=== PATIENT | female | born 1970 | race Caucasian/White ===

== ENCOUNTER 2023-12-18 08:02 | Outpatient (AMB) | payer BC, SELFPAY ==
--- NOTE | 2023-12-18 08:04 | MHC.OFFWIV ---
Intake Vital Signs 12/18/23 08:10 Height 5 ft 5 in Weight 175 lb BMI 29.1 BP 130/74 Blood Pressure Location Rt brachial Position Sitting Pulse 78 Pulse Source Pulse Oximeter Pulse Oximetry (%) 98 Oxygen Delivery Method Room Air Intake Visit Reasons: EP Rt elbow up to shoulder pain Intake Note: pt is here for right elbow up to shoulder pain Patient Tobacco Use Status: Never used Tobacco Allergies No Known Allergies Allergy (Verified 12/18/23 08:32) Medication List - Last Reconciled 12/18/23 by AMADEO Carpenter citalopram 20 mg PO DAILY cyclobenzaprine 5 mg PO BEDTIME PRN estradiol (Mona) transdermal ibuprofen mg PO meloxicam 15 mg PO DAILY progesterone micronized 200 mg PO BEDTIME Do you need a note to return to daycare/school/sports/work: Yes HPI HPI Comments History of Present Illness Details Patient is a 53 year old female in today for a sick visit. For the past 2 weeks she reports discomfort in her right elbow after performing vigorous exercise. Patient states the pain is mostly in the medial aspect of her elbow. Denies tingling or numbness. She states she is given the area rest for the past 2 weeks and has noticed that the pain is now traveling to her shoulder. Patient does have point tenderness to the medial epicondyle and crepitus to the right shoulder. Denies any direct trauma to the area. Mild to moderate benefit with ibuprofen use. She reports having limited exercise activities for the past 2 weeks and is seen only mild improvement. Patient has full range of motion of extremities. [facility] Social History Patient Tobacco Use Status: Never used Tobacco Review of Systems Const All systems reviewed & are unremarkable except as noted in HPI and below Physical Exam Vital Signs: Last Vital Signs Pulse 78 12/18/23 08:10 BP 130/74 12/18/23 08:10 Pulse Ox 98 12/18/23 08:10 Oxygen Delivery Method Room Air 12/18/23 08:10 BMI result Body Mass Index 29.1 Vital signs reviewed stable. Const Other: Appearance: Alert.? Oriented X3.? No acute distress.? Head: Normocephalic, Respiratory: No respiratory distress.? Skin: Skin warm and dry.? Normal skin color.? Normal skin turgor.? Extremities: + point tenderness to right medial epicondyle. Full ROM. +crepitus to right shoulder on abductions. Neuro: Oriented X 3.? No motor deficit.? No sensory deficit. Assessment & Plan Assessment & Plan (1) Golshabana's elbow: Comment: Will obtain x-ray. Patient will be given meloxicam and cyclobenzaprine. Patient has been educated she can purchase a flexible elbow brace. Should utilize ice and rest. Patient has also been educated on stretches that she can perform at home to improve pain. Code(s): M77.00 - Medial epicondylitis, unspecified elbow Qualifiers: Laterality: right Qualified Code(s): M77.01 - Medial epicondylitis, right elbow Plan: Take your medications as prescribed. If you were prescribed antibiotics today, it is important that you take your medication to their entirety, do not skip any doses, do not finish them early. Follow-up with your primary care provider this week. Return to the emergency department with new or worsening symptoms. Such as fevers, chills, chest pain, shortness of breath, nausea, vomiting, dizziness, headache, vision changes, lethargy In case of emergency call 911 Plan Follow up with pcp. Orders: Orders XR elbow RT min 3V Today M25.521 - Pain in right elbow XR shoulder RT min 2V Today M25.511 - Pain in right shoulder Medications: New cyclobenzaprine 5 mg PO BEDTIME PRN 14 tabs 0RF muscle spasm meloxicam 15 mg PO DAILY 14 tabs 0RF Coding Level of Care Code Est Pt Level 3 (25867) Diagnoses Golfers elbow of right upper extremity M77.01 Laterality: right Time Spent (min) 28
[2023-12-18 08:10] VITALS: BP 130/74; PULSE 78; O2SAT 98; BMI 29.1
== END 2023-12-18 09:53 | disposition home or self-care (01) ==
PROVIDERS: PCP Nurse Practitioner Family; Visit Provider Nurse Practitioner Primary Care
DX: M77.01 Medial epicondylitis, right elbow (principal)
CPT/HCPCS: 99213

== ENCOUNTER 2023-12-18 08:28 | Outpatient (REF) | payer BC, SELFPAY ==
--- NOTE | ~2023-12-18 | XR_ITS ---
EXAMINATION: XR SHOULDER, RIGHT CLINICAL INFORMATION: Pain in the right shoulder COMPARISON: None available. TECHNIQUE: AP external rotation, Grashey, scapular Y, and axillary views of the right shoulder. FINDINGS: No fracture, dislocation or destructive process. There is mild spurring of the right AC joint. No erosive change. XR/XR shoulder RT min 2V IMPRESSION: Mild degenerative change. No fracture.
--- NOTE | ~2023-12-18 | XR_ITS ---
EXAMINATION: XR ELBOW, RIGHT CLINICAL INFORMATION: Right-sided elbow pain COMPARISON: None available. TECHNIQUE: AP, lateral, and oblique views of the right elbow. FINDINGS: No fracture, dislocation or destructive process or joint effusion. XR/XR elbow RT min 3V IMPRESSION: Unremarkable study.
== END 2023-12-18 08:29 | disposition home or self-care (01) ==
LOC: HO.HMGCX 08:28
PROVIDERS: PCP Nurse Practitioner Family; Visit Provider Nurse Practitioner Primary Care
DX: M25.521 Pain in right elbow (principal); M25.511 Pain in right shoulder
CPT/HCPCS: 73030; 73080

== ENCOUNTER 2024-03-10 10:49 | Outpatient (AMB) | payer BC, SELFPAY ==
--- NOTE | 2024-03-10 11:08 | MHC.PC.OV ---
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 Intake Note: New pateint visit Is last menstrual period known: No (spotting every month) Allergies No Known Allergies Allergy (Verified 03/10/24 11:38) Medication List - Last Reconciled 03/10/24 by Candice Chiang, SOUR BLEACHING PLEATER- estradiol (Mona) transdermal prasterone (dhea) 25 mg PO DAILY progesterone micronized 200 mg PO BEDTIME Tobacco use date assessed: 03/10/24 Dental Screening Dental Screen Date: 03/10/24 Did you have a dental visit in the last 12 months?: Yes Did you have a dental problem in the last 6 months where you did not have access to dental care?: No Was dental information given to patient?: Patient has dentist HPI HPI Comments History of Present Illness Details 53-year-old female with generalized anxiety disorder, mild DJD R shoulder, perimenopause, tinnitus, [place], obese Surgical hx umbilical hernia repair in childhood Family hx adopted 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 Colon reports UTD ? Mammo 11/2023 ? DEXA n/a not in menopause ? PAP UTD ? Tdap thinks UTD; had shingles vaccine a few years ago Specialists: CONTRACT ADMIN Dr Acosta @ [facility] [place] [facility] head MRI and hearing test; no cause. Here today est care, no old medical records Coming from [facility] Has complaints of an umbilical hernia. She reports during childhood she had a repair done. However the last few years she has noticed this area bulging out again. It is painless. However she wonders if there is anything that can be done. She also is very interested in finding out about her hormones. She is in perimenopause. She is under the care of photo finish photographer at [facility]. She had her IUD removed last March. Reports that she had spotting all along with the IUD, upon removal of the IUD she continues with the same spotting. She was interested in HRT to help with her symptoms, insight the use of online treatment. Is now taking a patch and oral HRT. Reports that she does feel better, and sleeping better. However she feels like she can not lose weight and she continuously has aches and pains in her joints. In regards to her weight she reports that she has always been a size 8, and over the last few years she has increased to a size 12. Reports that she eats clean, exercises however nothing seems to help. Does report that she was on Celexa previously for generalized anxiety disorder, however she stopped taking this about 3 months ago as she feels like she did not need this. Does admit to some increase in weight gain while on this medication. Was taking this for about 1 year. Admits to being hard of hearing, worse on the left, mild on the right, was followed by ENT previously. Does not need a hearing aid at this time. Has tinnitus that is chronic. Exam: awake alert NAD MMM RRR LS CTAB Abd soft, reducible umb hernia palpated Plan In regards to the umbilical hernia, we will refer to [facility] for consultation. In regards to the hormonal concern, perimenopause and inability to lose weight offered to check labs, declined at this time. Reports that she has had labs done fairly recently by her previous primary care and would like these records reviewed prior to checking any additional blood work. These records have been requested and are pending at this time. Advised to follow up with her photo finish photographer in regards to the hormones and perimenopausal symptoms and questions to include the medications being prescribed from the outlined physician. I do wonder if the way concerns related to the Celexa, which she is now off of. I would like to see her back in May/June to review her labs and weight concerns, sooner as needed. This note is constructed using voice recognition software. While every effort has been made to ensure accuracy in gyroscopic instrument mechanic, still errors may have been included Sometimes, these errors may affect the content or meaning of the given sentence . Total time spent caring for the patient today was 30 minutes. 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 1. Little interest or pleasure in doing things: not at all 2. Feeling down, depressed, or hopeless: not at all 3. Trouble falling or staying asleep, or sleeping too much: not at all 4. Feeling tired or having little energy: several days 5. Poor appetite or overeating: not at all 6. Feeling bad about yourself - or that you are a failure or have let yourself or your family down: not at all 7. Trouble concentrating on things, such as reading the newspaper or watching television: not at all 8. Moving or speaking so slowly that other people could have noticed. Or the opposite - being so fidgety or restless that you have been moving around a lot more than usual: not at all 9. Thoughts that you would be better off or of hurting yourself in some way: not at all Total score: 1 Depression Screening Interpretation: Negative Depression Screening Done: Yes 07252 - PHQ-9 Billing: Yes Source: Developed by Drs. Edwin Antonio, Deidre Aviles, Armin Bautista and colleagues, with an educational francis from [employer]. Thrive Questionnaire Date Thrive assessed: 03/10/24 I am a: Patient What is your living situation today?: I have a steady place to live Within the past 12 months, did the food you bought not last and you didn't have the money to get more?: Never true Within the past 12 months, did you worry whether your food would run out before you got money to buy more?: Never true Do you have trouble paying for medicines?: No Do you have trouble getting transportation to medical appointments?: No Do you have trouble paying your heating and electricity bill?: No Do you have trouble taking care of your child, family member or friend?: No Do you have trouble with day-to-day activities such as bathing, preparing meals, shopping, managing finances, etc.?: No Are you currently unemployed and looking for a job?: No Are you interested in more education?: No Please select the resources that you would like help with: None Currently or been in a relationship where the following occur: No concerns reported THRIVE Score: 0 AUDIT C Alcohol Use Questionnaire (AUDIT-C) 1. How often do you have a drink containing alcohol?: 2-3 times a week 2. How many drinks containing alcohol do you have on a typical day when you are drinking?: 5 or 6 3. How often do you have six or more drinks on one occasion?: Less than monthly Total Score: 6 Score Reviewed/Action Taken: Yes LOLA-7 AMB Questionnaire LOLA-7 Date LOLA - 7 assessed: 03/10/24 Feeling nervous, anxious, or on edge: 0 = Not at all Not being able to stop or control worryin = Not at all Worrying too much about different things: 0 = Not at all Trouble relaxin = Not at all Being so restless that it is hard to sit still: 0 = Not at all Becoming easily annoyed or irritable: 0 = Not at all Feeling afraid as if something awful might happen: 0 = Not at all Total LOLA-7 score (0-4 normal; 5-9 mild; 10-14 moderate; 15-21 severe): 0 Source: Developed by Drs. Edwin Antonio, Deidre Aviles, Armin Bautista and colleagues, with an educational francis from [employer]. LOLA-7 Assessment Billing LOLA-7 Assessment Tool: LOLA-7 Assessment 79935 Physical exam (Primary Care) Vital Signs: Last Vital Signs Temp 98.1 F 03/10/24 11:19 Pulse 63 03/10/24 11:19 Resp 14 03/10/24 11:19 BP 116/68 03/10/24 11:19 Pulse Ox 96 03/10/24 11:19 Oxygen Delivery Method Room Air 03/10/24 11:19 BMI result Body Mass Index 31.4 BMI Assessment/Plan discussion: High BMI High, discussed plan: lifestyle Tobacco/Smoking Status: Tobacco use Status Tobacco use date assessed 03/10/24 03/10/24 11:18 Patient Tobacco Use Status Former Tobacco user 03/10/24 11:18 e-Cigarette/Vaping Use Never Used 03/10/24 11:18 PHQ-9: PHQ-9 Score PHQ-9: Total score 1 03/10/24 11:38 Depression Screening Interpretation: Negative Thrive Assessment: Date of Thrive Assessment Date Thrive assessed 03/10/24 03/10/24 11:18 Currently or been in a relationship where the following occur: No concerns reported Assessment and Plan Assessment & Plan (1) Umbilical hernia: Code(s): K42.9 - Umbilical hernia without obstruction or gangrene Qualifiers: Obstruction and gangrene presence: without obstruction or gangrene Qualified Code(s): K42.9 - Umbilical hernia without obstruction or gangrene (2) LOLA (generalized anxiety disorder): Code(s): F41.1 - Generalized anxiety disorder (3) Perimenopausal: Code(s): N95.1 - Menopausal and female climacteric states (4) [place] (hard of hearing): Code(s): H91.90 - Unspecified hearing loss, unspecified ear (5) Tinnitus: Code(s): H93.19 - Tinnitus, unspecified ear Qualifiers: Laterality: bilateral Qualified Code(s): H93.13 - Tinnitus, bilateral (6) DJD (degenerative joint disease): Code(s): M19.90 - Unspecified osteoarthritis, unspecified site Qualifiers: Osteoarthritis location: shoulder Osteoarthritis type: primary Laterality: right Qualified Code(s): M19.011 - Primary osteoarthritis, right shoulder (7) Obese: Comment: bmi >31 Code(s): E66.9 - Obesity, unspecified Qualifiers: Obesity type: unspecified obesity type Obesity classification: adult class 1 (BMI 30 - 34.9) Serious obesity comorbidity presence: without serious comorbidity Body mass index: BMI 31.0-31.9 Qualified Code(s): E66.9 - Obesity, unspecified; Z68.31 - Body mass index [BMI] 31.0-31.9, adult Orders: Referrals General Surgery Referral K42.9 - Umbilical hernia without obstruction or gangrene Coding Level of Care Code New Pt Level 3 (70098) Complex EM visit Add On G2211 Diagnoses Umbilical hernia without obstruction and without gangrene K42.9 Obstruction and gangrene presence: without obstruction or gangrene LOLA (generalized anxiety disorder) F41.1 Perimenopausal N95.1 [place] (hard of hearing) H91.90 Tinnitus of both ears H93.13 Laterality: bilateral Primary osteoarthritis of right shoulder M19.011 Osteoarthritis location: shoulder Osteoarthritis type: primary Laterality: right Class 1 obesity without serious comorbidity with body mass index (BMI) of 31.0 to 31.9 in adult, unspecified obesity type E66.9; Z68.31 Obesity type: unspecified obesity type Obesity classification: adult class 1 (BMI 30 - 34.9) Serious obesity comorbidity presence: without serious comorbidity Body mass index: BMI 31.0-31.9 Additional Codes LOLA-7 Assessment Billing - LOLA-7 Assessment Tool: LOLA-7 Assessment 46236 ([id number])
[2024-03-10 11:19] VITALS: BP 116/68; PULSE 63; RESP 14; TEMP 36.7; O2SAT 96; BMI 31.4
== END 2024-03-10 12:06 | disposition home or self-care (01) ==
PROVIDERS: PCP Nurse Practitioner Family; Visit Provider Nurse Practitioner Family
DX: K42.9 Umbilical hernia without obstruction or gangrene (principal); F41.1 Generalized anxiety disorder; N95.1 Menopausal and female climacteric states; H91.90 Unspecified hearing loss, unspecified ear; H93.13 Tinnitus, bilateral; M19.011 Primary osteoarthritis, right shoulder; E66.9 Obesity, unspecified; Z68.31 Body mass index [BMI] 31.0-31.9, adult
CPT/HCPCS: 99203; 99213

== ENCOUNTER 2024-04-01 08:20 | Outpatient (AMB) | payer BC, SELFPAY ==
[2024-04-01 08:28] VITALS: BP 118/69; PULSE 66; BMI 30.9
--- NOTE | 2024-04-01 08:28 | A.OFFVIS_ITS ---
Vital Signs 04/01/24 08:28 Height 5 ft 5 in Weight 186 lb BMI 30.9 BP 118/69 Blood Pressure Location Rt brachial Position Sitting Pulse 66 Intake Visit Reasons: Umbilical hernia Intake Note: Patient referred by pcp Candice Chiang PA-C for umbilical hernia. Present for 1yr. Hx of umbilical hernia as a baby that repaired at age 8. Patient c/o: bulging out. denies pain. Hand Touch Up Painter Required: No Accompanied by: Self / Same As Patient Allergies No Known Allergies Allergy (Verified 04/01/24 08:36) HPI Comments Details: Patient presents with a symptomatic umbilical hernia. Slight tenderness repair. In her youth, she had an umbilical hernia repaired. Approximately year and half ago she was doing heavy lifting where she does workouts and has had symptoms since. These consist of umbilical pain and protrusion. She has no other significant GI issues or complaints. She is tolerating diet. Having regular bowel habits. 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 Abdomen benign. Bilateral groin exam negative. Patient has roughly 2 cm reducible umbilical hernia. Assessment & Plan Assessment & Plan (1) Umbilical hernia: Code(s): K42.9 - Umbilical hernia without obstruction or gangrene Category: Surgical Qualifiers: Obstruction and gangrene presence: without obstruction or gangrene Qualified Code(s): K42.9 - Umbilical hernia without obstruction or gangrene Plan Risks, benefits, alternatives of open umbilical hernia repair with mesh were reviewed with the patient and included but not limited to bleeding, infection, recurrence, numbness, pain, scarring, bowel injury and the patient wishes to proceed. Arrangements were made for a day which is convenient for her. All questions answered. Coding Level of Care Code New Pt Level 5 (98174) Diagnoses Umbilical hernia without obstruction and without gangrene K42.9 Obstruction and gangrene presence: without obstruction or gangrene
== END 2024-04-01 08:50 | disposition home or self-care (01) ==
PROVIDERS: PCP Nurse Practitioner Family; Referring Provider Nurse Practitioner Family; Visit Provider Surgery
DX: K42.9 Umbilical hernia without obstruction or gangrene (principal)
CPT/HCPCS: 99204

== ENCOUNTER → 2024-04-01 08:20 | Outpatient (BNVA) | payer BC, SELFPAY | PROVIDERS: PCP Nurse Practitioner Family; Referring Provider Nurse Practitioner Family; Visit Provider Surgery ==

== ENCOUNTER 2024-05-08 10:59 | Day surgery (SDC) | payer BC, SELFPAY ==
[2024-05-06 07:31] VITALS: BMI 30.9
--- NOTE | 2024-05-07 09:30 | P.HPSUR_ITS ---
Pre-Procedural Eval Section A - 24 Hr Update-Section A only Date of Service: 05/07/24 The patient is an INPATIENT: No Changes since office visit: No Cold of Flu in the past 2 weeks, No New Medical Problems, No Changes in Medication and No Patient answered all questions Section B - Complete if H&P > 30 days Chief Complaint: Umbilical hernia without obstruction or gangrene Allergies: Allergies Allergy/AdvReac Type Severity Reaction Status Date / Time No Known Allergies Allergy Verified 04/01/24 08:36 Review of Systems Sugical H&P ROS: Negative: Constitution, Cardiovascular, Respiratory, Neurological, Psychiatric, Hem-Onc, Allergic/Immunologic, Gastrointestinal, Genitourinary, Musculoskeletal, Integumentary, Endocrine and Ey es/Ears/Nose/Throat Exam Surgical H&P Exam: Normal: HEENT, Normal: Heart, Normal: Lungs, Normal: Extremities, Normal: Abdomen, Normal: Skin and Normal: Neurological Plan I have reviewed the history and physical and performed a pertinent physical examination on my patient. No changes have occurred unless specified. Time Spent With Patient Time: Total time managing care of this patient today ____ minutes.
[2024-05-08 12:51] VITALS: BMI 31.1
[2024-05-08 12:59] VITALS: BP 136/85; PULSE 72; RESP 16; TEMP 37.2; O2SAT 97
[2024-05-08] MEDS: Lactated Ringers 1,000 ML 100 ML IVCONT (13:11)
--- NOTE | 2024-05-08 13:20 | HO.ANESPROP2 ---
Documented by User: Madison Curtis NP 05/07/24 12:04 HPI - Anesthesia Eval Consult details Narrative: 53yo F for OPEN Hernia Umbilical with mesh PMFSH Active Problems Active Problems: All Active Problems Obese (Acute) DJD (degenerative joint disease) (Acute) Tinnitus (Acute) [place] (hard of hearing) (Acute) Perimenopausal (Acute) LOLA (generalized anxiety disorder) (Acute) Umbilical hernia (Acute) Past Medical History Medical History Right elbow pain Right shoulder pain Golfer's elbow Arthritis Family History Family History Maternal Aunt Breast cancer Surgical History Surgical History Hx of umbilical hernia repair Social History Social History Housing: House Patient Tobacco Use Status: Former Tobacco user Years Smoked: College years e-Cigarette/Vaping Use: Never Used Use of substances other than those prescribed or required for medical reasons: No Are you DNR?: No Advance Directives: No Advance Directives Information Provided: Yes Recently lost weight without trying: No Nutrition Risks: No Nutritional Risk service: No Current occupational status: employed 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 Current occupational exposures/hazards: No Cognitive needs: No Hearing needs: No Vision needs: Yes (glasse/ contact lense) Meds Allergies Allergy/AdvReac Type Severity Reaction Status Date / Time No Known Allergies Allergy Verified 04/01/24 08:36 Home Medications ?Medication ?Instructions ?Recorded ?Confirmed ?Last Taken ?Type estradiol 0.075 mg/24 hr transdermal 12/18/23 04/01/24 Unknown History semiweekly transdermal patch (Mona) progesterone micronized 200 mg 200 mg PO BEDTIME 12/18/23 04/01/24 Unknown History capsule prasterone (dhea) 25 mg capsule 25 mg PO DAILY 03/10/24 04/01/24 Unknown History Exam Height,Weight and Vital Signs: Height 5 ft 5 in Weight 84.368 kg Assessment and Plan Assessment Anesthesia Assessment: Chart Reviewed Documented by User: Amber Steinberg DO 05/08/24 13:22 [facility] Past Medical History Medical History Right elbow pain Right shoulder pain Golfer's elbow Arthritis Family History Family History Maternal Aunt Breast cancer Family history of problems with anesthesia: No Surgical History Surgical History Hx of umbilical hernia repair History of Problems with Anesthesia: No Social History Social History Housing: House Patient Tobacco Use Status: Former Tobacco user Years Smoked: College years e-Cigarette/Vaping Use: Never Used Use of substances other than those prescribed or required for medical reasons: No Are you DNR?: No Advance Directives: No Advance Directives Information Provided: Yes Recently lost weight without trying: No Nutrition Risks: No Nutritional Risk service: No Current occupational status: employed 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 Current occupational exposures/hazards: No Cognitive needs: No Hearing needs: No Vision needs: Yes (glasse/ contact lense) Meds Allergies Allergy/AdvReac Type Severity Reaction Status Date / Time No Known Allergies Allergy Verified 04/01/24 08:36 Home Medications ?Medication ?Instructions ?Recorded ?Confirmed ?Last Taken ?Type estradiol 0.075 mg/24 hr transdermal 12/18/23 04/01/24 Unknown History semiweekly transdermal patch (Mona) progesterone micronized 200 mg 200 mg PO BEDTIME 12/18/23 04/01/24 Unknown History capsule prasterone (dhea) 25 mg capsule 25 mg PO DAILY 03/10/24 04/01/24 Unknown History Exam Exam Date and Time: 05/08/24 1320 Height,Weight and Vital Signs: Height 5 ft 5 in Weight 84.368 kg Vital Signs Temperature 98.9 F 05/08/24 12:59 Pulse Rate 72 05/08/24 12:59 Respiratory Rate 16 05/08/24 12:59 Blood Pressure 136/85 05/08/24 12:59 Pulse Oximetry 97 05/08/24 12:59 Oxygen Delivery Method Room Air 05/08/24 12:59 Temperature 98.9 F 05/08/24 12:59 Pulse Rate 72 05/08/24 12:59 Respiratory Rate 16 05/08/24 12:59 Blood Pressure 136/85 05/08/24 12:59 Pulse Oximetry 97 05/08/24 12:59 Oxygen Delivery Method Room Air 05/08/24 12:59 Airway Mallampati Class: I TM Dist: >3cm Neck ROM: Full Loose/Missing/Broken Teeth: No (patient denies any loose or broken teeth) Heart: S1S2 Lungs: CTAB Assessment and Plan Assessment Anesthesia Assessment: Anesthesia Plan Discussed and Chart Reviewed Final Anesthetic Review Family History of Problems with Anesthesia: No History of Problems with Anesthesia: No NPO: Yes ASA Class: II Final Preanesthetic Review: No Changes in Pt Med Stat, Meds/Allgs Chart Reviewed, Consent Obtained/Reviewed and Anes Risks/Benef Reviewed Patient Risk: Low Procedure Risk: Low Anesthetic Plan Anesthetic Plan: MAC: and Agree w/ Assess. and Plan Disposition: Standard PACU
--- NOTE | 2024-05-08 15:07 | W.PM.OPN ---
Operative Note Operative Note Date of Service: 05/08/24 Narrative: Preoperative diagnosis: [] Incarcerated recurrent umbilical hernia Postop diagnosis: [] The same Procedure [] open umbilical herniorrhaphy with Bard mesh Surgeon: [] Joao Allergist/Immunologist Physician: [] Taylor Type of Anesthesia: [] MAC Indication for surgery: [] Roughly 3 cm incarcerated recurrent umbilical hernia with omental contents. Patient had open umbilical herniorrhaphy closed primarily in her youth. Findings: [] Patient brought to the operating room, placed on operative table supine position, after an adequate level of MAC anesthesia was induced, the patient's abdomen is prepped and draped in usual sterile fashion. Wound was infiltrated 0.5% Marcaine/1% lidocaine and a curvilinear supraumbilical incision was made and carried down through skin, subcutaneous tissue, where hernia sac was identified and circumferentially dissected down to the fascia. It was also in the posterior aspect of the umbilicus. Sac was opened were incarcerated omental contents were reduced. Sac was amputated using Bovie. Fascia margins were circumferentially cleared and a Bard mesh was placed with the this defect. Superficial layer of the mesh was circumferentially sutured to the surrounding fascia using 0 Ethibond suture. At completion of procedure, mesh was in good position with no tension or defects. Wound was irrigated, and secured hemostasis. Was closed in the following manner; posterior aspect of the umbilicus was tacked to the wound floor using interrupted 3-0 Vicryl sutures. Skin was closed using interrupted inverted dermal 3-0 Vicryl sutures followed by Steri-Strips and sterile dressings. Sponge, needle, and instrument counts reported correct. Patient tolerated the procedure well and emerged from anesthesia stable condition. EBL minimal
[2024-05-08 15:12] VITALS: BP 95/55; PULSE 70; RESP 10; TEMP 36.1; O2SAT 97
[2024-05-08 15:27] VITALS: BP 106/72; PULSE 68; RESP 16; TEMP 36.6; O2SAT 97
== END 2024-05-08 15:40 | disposition home or self-care (01) ==
PROVIDERS: PCP Nurse Practitioner Family; Visit Provider Surgery
PROC: (CPT 49592; principal; 2024-05-08 15:00)
DX: K42.0 Umbilical hernia with obstruction, without gangrene (principal)
CPT/HCPCS: 49592; C1781; J0690; J2250; J2704; J2795; J3010

== ENCOUNTER → 2024-05-08 10:59 | Outpatient (BNV) | payer BC, SELFPAY | PROVIDERS: PCP Nurse Practitioner Family; Visit Provider Surgery | DX: K42.9 Umbilical hernia without obstruction or gangrene (principal) | CPT/HCPCS: 49594 ==

== ENCOUNTER 2024-05-19 10:11 | Outpatient (AMB) | payer BC, SELFPAY ==
--- NOTE | 2024-05-19 10:12 | A.OFFVIS_ITS ---
Intake Visit Reasons: S/P umbilical hernia w/mesh Intake Note: Patient here s/p umbilical hernia w/mesh on 05-08-2024. Patient c/o: large bump near umbilicus that was noticed 3 days later after removing bandage. Thinks hernia still there. 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 She has minimal incisional discomfort otherwise doing well. She has been tolerating a diet. Having regular bowel habits. She increasing her activity level. Patient also pointed out that she and now has noticed a supraumbilical ventral hernia several cm above the umbilicus. This was not appreciated on prior exam. 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 Several cm above the umbilicus as a 2nd reducible ventral hernia. Defect measures roughly 2 cm Assessment & Plan Assessment & Plan (1) Status post umbilical hernia repair, follow-up exam: Code(s): Z09 - Encounter for follow-up examination after completed treatment for conditions other than malignant neoplasm Category: Surgical (2) Ventral hernia: Code(s): K43.9 - Ventral hernia without obstruction or gangrene Category: Surgical Plan She would like to have this supraumbilical ventral hernia repaired. Risks, benefits, alternatives to this were reviewed with the patient included but not l imited to bleeding, infection, recurrence, numbness, pain, scarring, bowel injury and the patient wishes to proceed. All questions answered. Arrangements were made for this. Coding Level of Care Code Est Pt Level 5 (97945) Global (81522) Diagnoses Status post umbilical hernia repair, follow-up exam Z09 Ventral hernia K43.9
== END 2024-05-19 10:31 | disposition home or self-care (01) ==
PROVIDERS: PCP Nurse Practitioner Family; Visit Provider Surgery
DX: Z09 Encounter for follow-up examination after completed treatment for conditions other than malignant neoplasm (principal); K43.9 Ventral hernia without obstruction or gangrene
CPT/HCPCS: 99024

== ENCOUNTER → 2024-05-19 10:11 | Outpatient (BNVA) | payer BC, SELFPAY | PROVIDERS: PCP Nurse Practitioner Family; Visit Provider Surgery ==

== ENCOUNTER 2024-06-10 07:33 | Outpatient (REF) | payer BC, SELFPAY ==
[2024-06-10 12:15] LABS: Estimated Average Glucose 108 mg/dL; Hemoglobin A1c % 5.4 % (<6.0)
[2024-06-10 12:45] LABS: Alanine Aminotransferase 21 U/L (0-31); Alkaline Phosphatase 53 U/L (39-117); Anion Gap 12 (12-20); Aspartate Amino Transferase 22 U/L (5-31); Bilirubin Total 0.8 mg/dL (0.0-1.0); Blood Urea Nitrogen 15 mg/dL (9-16); Calcium 9.2 mg/dL (8.4-10.2); Carbon Dioxide 27 mmol/L (22-29); Chloride 106 mmol/L (96-108); Cholesterol 206 mg/dL (<200); Estimated Glomerular Filt Rate 56; Glucose Random 101 mg/dL (60-115); HDL Cholesterol 59 mg/dL (>40); LDL Cholesterol Calculated 130 mg/dL (<100); Potassium 3.9 mmol/L (3.3-5.1); Sodium 141 mmol/L (135-145); Total Protein 6.8 g/dL (6.5-8.0); Triglycerides 86 mg/dL (<150)
[2024-06-10 12:46] LABS: Creatinine Urine 199.09 mg/dL; Microalbum/Creatinine Ratio Ur 3.5 ug/mg cr (<30)
[2024-06-10 13:10] LABS: Folate 9.4 ng/mL (> or = 4.0); Vitamin B12 455 pg/mL (200-900)
[2024-06-10 13:11] LABS: TSH reflex Free T4 2.44 uIU/mL (0.32-4.0)
== END 2024-06-10 07:34 | disposition home or self-care (01) ==
LOC: HO.WFDLDS 07:33
PROVIDERS: Visit Provider Nurse Practitioner Family
DX: Z00.00 Encounter for general adult medical examination without abnormal findings (principal); Z13.1 Encounter for screening for diabetes mellitus
CPT/HCPCS: 36415; 80053; 80061; 82043; 82570; 82607; 82746; 83036; 84443

== ENCOUNTER 2024-06-12 08:25 | Outpatient (AMB) | payer BC, SELFPAY ==
--- NOTE | 2024-06-12 08:28 | A.OFFPC_ITS ---
Vital Signs 06/12/24 08:31 Height 5 ft 5 in Weight 186 lb 2 oz BMI 31.0 BP 122/70 Blood Pressure Location Rt brachial Position Sitting Respiration 14 Pulse 69 Pulse Source Pulse Oximeter Pulse Oximetry (%) 99 Oxygen Delivery Method Room Air Intake Visit Reasons: f/u labs 30 min Intake Note: follow up on labs Allergies No Known Allergies Allergy (Verified 06/12/24 08:59) Medication List - Last Reconciled 06/12/24 by Candice Chiang, PICKER-BC estradiol (Mona) transdermal hydrocodone-acetaminophen 5-325 mg 1 tab PO Q4-6H PRN prasterone (dhea) 25 mg PO DAILY progesterone micronized 200 mg PO BEDTIME Tobacco use date assessed: 03/10/24 Dental Screening Dental Screen Date: 03/10/24 HPI HPI Comments History of Present Illness Details 53-year-old female with generalized anxi ety disorder, mild DJD R shoulder, perimenopause, tinnitus, [place], obese, HLD, chronic low back pain Surgical hx umbilical hernia repair in childhood, varicose vein repair, s/p umbilical hernia w/mesh on 05-08-2024. 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 Colon 2018 need report ? Mammo 11/2023 ? DEXA n/a not in menopause ? PAP UTD, Dr Acosta, need report ? Tdap thinks UTD; had shingles vaccine 2019 Specialists: SWAGE TENDER Dr Acosta @ [facility] ENT Dr Penny head MRI and hearing test; no cause. Gen Surgeon @ [facility] [place] Here today for routine follow up of chronic conditions. s/p hernia surgery, unfortunatley ended up with a double hernia and will need re peat surgery next week (supraumbilical ventral hernia) Cont to be very frustrated w/ her weight. Wt is 1 lb less than last visit. Would like to be 150 lbs. Lowest wt was 135lbs in adulthood. Has to be away from the gym d/t surgery At 0200 having hot flashes; otherwise perimenopause sx are fine w/ use of HRT patch Interested in wt loss meds, such as a GLP1. Does not like medications. Got period in [place] 04/2024. Cont to suffer from chronic tinnitus and [place]. Hearing aides eventually. Reviewed with her labs 06/10/24 normal except elevated TC, LDL wonders about any other labs for thyroid Previous medical records reviewed. Exam: awake alert NAD MMM RRR LS CTAB Abd soft, reducible umb hernia palpated Mood and affect WNL Plan 15 minutes spent Discussing different fo ledy of medications to help with weight loss. Discouraged the use of GLP-1s due to the need to use lifelong, weight gain after discontinuation, cost and cancer risk. Educated about the use of Wellbutrin which can be used in patients without a seizure history. This medication works by blocking out the reward center related to mindless eating. It also has a mild stimulating effect. The side effect profile includes mild anxiety as well as a slight dizzy sensation. Another medication used is metformin, this is a diabetic medication. This medication has GI side effects. But can be very beneficial in aiding with weight loss in patients without diabetes. Topiramate was also discussed. This is a seizure medication with side effect profile that includes need to monitor LFTs as well as blood counts. One of the side effects is weight loss. Another medication, Phentermine is a stimulant/controlled substance. This is an anorexient that is used short-term medication used. =. Finally the use of a medication called Contrave, which is Wellbutrin + naltrexone can be used. The brand name is usually not cover therefore would have to prescribe the 2 medications individually. This medication works just as the Wellbutrin; naltrexone aides in further blocking of the reward center to aide in wt loss. After discussion of the above, the patient wishes to proceed with Wellbutrin. Start Wellbutrin XL 150mg QAM. Titrate to effect to help goal wt. Can add thyroid antibodies onto next routine set of labs. which should be in 6 mo to recheck lipids. FU in 8 weeks, wt loss/wellbutrin start, titrate to effect. This note is constructed using voice recognition software. While every effort has been made to ensure accuracy in transcription typist, still errors may have been included Sometimes, these errors may affect the content or meaning of the given sentence . Total time spent caring for the patient today was 45 minutes. This includes time spent before the visit reviewing the chart, time spent during the visit, and time spent after the visit on documentation COUNT INCLUDES THE [facility] Medical History (Updated 06/12/24 @ 15:41 by KATELYNN Yates) Right elbow pain Right shoulder pain Golfer's elbow Arthritis Surgical History (Updated 06/12/24 @ 10:08 by KATELYNN Yates) Umbilical hernia (05/08/24) Hx of umbilical hernia repair Family History Maternal Aunt Breast cancer Social History Housing: House Patient Tobacco Use Status: Former Tobacco user Years Smoked: College years e-Cigarette/Vaping Use: Never Used service: No Current occupational status: employed 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 1. Little interest or pleasure in doing things: not at all 2. Feeling down, depressed, or hopeless: not at all 3. Trouble falling or staying asleep, or sleeping too much: several days 4. Feeling tired or having little energy: not at all 5. Poor appetite or overeating: several days 6. Feeling bad about yourself - or that you are a failure or have let yourself or your family down: not at all 7. Trouble concentrating on things, such as reading the newspaper or watching television: not at all 8. Moving or speaking so slowly that other people could have noticed. Or the opposite - being so fidgety or restless that you have been moving around a lot more than usual: not at all 9. Thoughts that you would be better off or of hurting yourself in some way: not at all Total score: 2 74168 - PHQ-9 Billing: Yes Source: Developed by Drs. Edwin Antonio, Deidre Aviles, Armin Bautista and colleagues, with an educational francis from [employer]. Thrive Questionnaire Date Thrive assessed: 06/12/24 I am a: Patient What is your living situation today?: I have a steady place to live Within the past 12 months, did the food you bought not last and you didn't have the money to get more?: Never true Within the past 12 months, did you worry whether your food would run out before you got money to buy more?: Never true Do you have trouble paying for medicines?: No Do you have trouble getting transportation to medical appointments?: No Do you have trouble paying your heating and electricity bill?: No Do you have trouble taking care of your child, family member or friend?: No Do you have trouble with day-to-day activities such as bathing, preparing meals, shopping, managing finances, etc.?: No Are you currently unemployed and looking for a job?: No Are you interested in more education?: No Please select the resources that you would like help with: None Currently or been in a relationship where the following occur: No concerns reported THRIVE Score: 0 AUDIT C Alcohol Use Questionnaire (AUDIT-C) 1. How often do you have a drink containing alcohol?: 2-3 times a week 2. How many drinks containing alcohol do you have on a typical day when you are drinking?: 1 or 2 3. How often do you have six or more drinks on one occasion?: Never Total Score: 3 LOLA-7 AMB Questionnaire LOLA-7 Date LOLA - 7 assessed: 06/12/24 Feeling nervous, anxious, or on edge: 0 = Not at all Not being able to stop or control worryin = Not at all Worrying too much about different things: 0 = Not at all Trouble relaxin = Not at all Being so restless that it is hard to sit still: 0 = Not at all Becoming easily annoyed or irritable: 0 = Not at all Feeling afraid as if something awful might happen: 0 = Not at all Total LOLA-7 score (0-4 normal; 5-9 mild; 10-14 moderate; 15-21 severe): 0 Source: Developed by Drs. Edwin Antonio, Deidre Aviles, Armin Bautista and colleagues, with an educational francis from [employer]. LOLA-7 Assessment Billing LOLA-7 Assessment Tool: LOLA-7 Assessment 08146 Physical exam (Primary Care) Vital Signs: Last Vital Signs Pulse 69 06/12/24 08:31 Resp 14 06/12/24 08:31 BP 122/70 06/12/24 08:31 Pulse Ox 99 06/12/24 08:31 Oxygen Delivery Method Room Air 06/12/24 08:31 BMI result Body Mass Index 31.0 Tobacco/Smoking Status: Tobacco use Status Tobacco use date assessed 03/10/24 06/12/24 08:30 Patient Tobacco Use Status Former Tobacco user 06/12/24 08:30 e-Cigarette/Vaping Use Never Used 06/12/24 08:30 PHQ-9: PHQ-9 Score PHQ-9: Total score 2 06/12/24 08:30 Thrive Assessment: Date of Thrive Assessment Date Thrive assessed 06/12/24 06/12/24 08:30 Currently or been in a relationship where the following occur: No concerns reported Office Procedures Office Procedure Misc Details: G0449 15 MIN OBESITY EDUCATION Office Procedure Billing Code: AMB Procedure Billing Code (G0449 15 MIN OBESITY EDUCATION) Coding Level of Care Code Est Pt Level 5 (64934) Complex EM visit Add On G2211 Diagnoses Ventral hernia without obstruction or gangrene K43.9 Obstruction and gangrene presence: without obstruction or gangrene Tinnitus of both ears H93.13 Laterality: bilateral [place] (hard of hearing) H91.90 Perimenopausal N95.1 Moderate mixed hyperlipidemia not requiring statin therapy E78.2 Hyperlipidemia type: moderate mixed hyperlipidemia not requiring statin therapy BMI 31.0-31.9,adult Z68.31 Class 1 obesity with serious comorbidity and body mass index (BMI) of 31.0 to 31.9 in adult, unspecified obesity type E66.811; Z68.31 Obesity type: unspecified obesity type Serious obesity comorbidity presence: with serious comorbidity CPT Codes Office Procedure - Office Procedure Billing Code: AMB Procedure Billing Code ([id number]) Additional Codes LOLA-7 Assessment Billing - LOLA-7 Assessment Tool: LOLA-7 Assessment 81715 ([id number]) Assessment & Plan Assessment & Plan (1) Ventral hernia: Code(s): K43.9 - Ventral hernia without obstruction or gangrene Category: Surgical Qualifiers: Obstruction and gangrene presence: without obstruction or gangrene Qualified Code(s): K43.9 - Ventral hernia without obstruction or gangrene Plan: . (2) Tinnitus: Code(s): H93.19 - Tinnitus, unspecified ear Category: Medical Qualifiers: Laterality: bilateral Qualified Code(s): H93.13 - Tinnitus, bilateral Plan: . (3) [place] (hard of hearing): Code(s): H91.90 - Unspecified hearing loss, unspecified ear Category: Medical Plan: . (4) Perimenopausal: Code(s): N95.1 - Menopausal and female climacteric states Category: Medical Plan: . (5) Hyperlipidemia: Code(s): E78.5 - Hyperlipidemia, unspecified Category: Medical Qualifiers: Hyperlipidemia type: moderate mixed hyperlipidemia not requiring statin therapy Qualified Code(s): E78.2 - Mixed hyperlipidemia Plan: TO REDUCE LOW-DENSITY LIPOPROTEIN (LDL) CHOLESTEROL, YOU CAN TRY MAKING LIFESTYLE CHANGES TO YOUR DIET, EXERCISE, AND OTHER HABITS: EAT A HEART-HEALTHY DIET LIMIT SATURATED AND TRANS FATS, AND EAT MORE FOODS WITH HEALTHY FATS, LIKE NUTS, SEEDS, AND UNSATURATED OILS. YOU CAN ALSO TRY EATING MORE SOLUBLE FIBER, WHICH CAN HELP REDUCE THE AMOUNT OF CHOLESTEROL YOUR BODY ABSORBS. FOODS HIGH IN SOLUBLE FIBER INCLUDE WHOLE GRAINS, FRUITS, AND LEGUMES. EXERCISE REGULARLY AIM FOR AT LEAST 150 MINUTES OF EXERCISE PER WEEK, SUCH WALKING, SWIMMING, OR CYCLING. MAINTAIN A HEALTHY WEIGHT LOSING WEIGHT CAN HELP LOWER LDL CHOLESTEROL, ESPECIALLY IF YOU ARE OVERWEIGHT OR OBESE. MANAGE STRESS CHRONIC STRESS CAN RAISE LDL CHOLESTEROL, SO TRY TO FIND HEALTHY WAYS TO MANAGE IT. QUIT SMOKING SMOKING CAN RAISE CHOLESTEROL AND INCREASE THE RISK OF SERIOUS HEALTH PROBLEMS. GET ENOUGH SLEEP AIM FOR 7 TO 9 HOURS OF SLEEP PER NIGHT. YOU SHOULD ALSO LIMIT FOODS WITH CHOLESTEROL, WHICH ARE FOUND IN ANIMAL PRODUCTS LIKE LIVER, EGG YOLKS, AND WHOLE MILK DAIRY PRODUCTS. (6) BMI 31.0-31.9,adult: Code(s): Z68.31 - Body mass index [BMI] 31.0-31.9, adult Category: Medical Plan: . (7) Class 1 obesity with body mass index (BMI) of 31.0 to 31.9 in adult: Comment: HLD Code(s): E66.811 - Obesity, class 1; Z68.31 - Body mass index [BMI] 31.0-31.9, adult Category: Medical Qualifiers: Obesity type: unspecified obesity type Serious obesity comorbidity presence: with serious comorbidity Qualified Code(s): E66.811 - Obesity, class 1; Z68.31 - Body mass index [BMI] 31.0-31.9, adult Plan: . Plan . Orders: Orders Lipid Panel 10/11/24 E66.811 - Obesity, class 1, E78.2 - Mixed hyperlipidemia, Z68.31 - Body mass index [BMI] 31.0-31.9, adult Thyroid Peroxidase Antibodies 10/11/24 E66.811 - Obesity, class 1, E78.2 - Mixed hyperlipidemia, Z68.31 - Body mass index [BMI] 31.0-31.9, adult Thyroid Stimulating Hormone 10/11/24 E66.811 - Obesity, class 1, E78.2 - Mixed hyperlipidemia, Z68.31 - Body mass index [BMI] 31.0-31.9, adult Medications: New bupropion HCl XL (Wellbutrin XL) 150 mg PO QAM 90 tabs 0RF
[2024-06-12 08:31] VITALS: BP 122/70; PULSE 69; RESP 14; O2SAT 99; BMI 31.0
== END 2024-06-12 09:23 | disposition home or self-care (01) ==
LOC: HO.HMCFM 08:26
PROVIDERS: PCP Nurse Practitioner Family; Visit Provider Nurse Practitioner Family
DX: K43.9 Ventral hernia without obstruction or gangrene (principal); H93.13 Tinnitus, bilateral; Z68.31 Body mass index [BMI] 31.0-31.9, adult; E66.811 Obesity, class 1; H91.93 Unspecified hearing loss, bilateral; N95.1 Menopausal and female climacteric states; E78.2 Mixed hyperlipidemia

== ENCOUNTER → 2024-06-12 08:25 | Outpatient (BNVA) | payer BC, SELFPAY | PROVIDERS: PCP Nurse Practitioner Family; Visit Provider Nurse Practitioner Family | DX: K43.9 Ventral hernia without obstruction or gangrene (principal); H93.13 Tinnitus, bilateral; H91.90 Unspecified hearing loss, unspecified ear; N95.1 Menopausal and female climacteric states; E78.2 Mixed hyperlipidemia; E66.811 Obesity, class 1; Z68.31 Body mass index [BMI] 31.0-31.9, adult | CPT/HCPCS: 96127 ==

== ENCOUNTER 2024-06-20 06:08 | Day surgery (SDC) | payer BC, SELFPAY ==
[2024-06-18 10:23] VITALS: BMI 30.9
--- NOTE | 2024-06-18 14:55 | HO.ANESPROP2 ---
Documented by User: Madison Curtis NP 06/18/24 14:55 HPI - Anesthesia Eval Consult details Narrative: 54yo F for Open Hernia Supraumbilical Ventral with mesh s/p umbilical hernia repair 04/2024 with [facility] Active Problems Active Problems: All Active Problems Class 1 obesity with body mass index (BMI) of 31.0 to 31.9 in adult (Acute) BMI 31.0-31.9,adult (Acute) Hyperlipidemia (Acute) Ventral hernia (Acute) Status post umbilical hernia repair, follow-up exam (Acute) Obese (Acute) DJD (degenerative joint disease) (Acute) Tinnitus (Acute) [place] (hard of hearing) (Acute) Perimenopausal (Acute) LOLA (generalized anxiety disorder) (Acute) Umbilical hernia (Acute 05/08/24) Past Medical History Medical History Chronic low back pain Tinnitus DJD (degenerative joint disease) Anxiety [place] (hard of hearing) Hyperlipidemia Arthritis Golfer's elbow Family History Family History Maternal Aunt Breast cancer Family history of problems with anesthesia: No Surgical History Surgical History Hx of umbilical hernia repair Hx of umbilical hernia repair History of Problems with Anesthesia: No Social History Social History Housing: House Are you a primary physician assistant primary care to a significant other at home: No Do you presently have visiting nurse or other home services: No Patient Tobacco Use Status: Former Tobacco user Years Smoked: College years e-Cigarette/Vaping Use: Never Used Have you been hit, kicked, punched, or otherwise hurt by someone within the past year? 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 Current occupational exposures/hazards: No Cognitive needs: No Hearing needs: No Vision needs: Yes (glasse/ contact lense) Meds Allergies Allergy/AdvReac Type Severity Reaction Status Date / Time No Known Allergies Allergy Verified 06/20/24 06:38 Home Medications ?Medication ?Instructions ?Recorded ?Confirmed ?Last Taken ?Type estradiol 0.075 mg/24 hr 1 patch transdermal 2XW 12/18/23 06/18/24 Unknown History semiweekly transdermal patch (Mona) progesterone micronized 200 mg 200 mg PO BEDTIME 12/18/23 06/18/24 Unknown History capsule prasterone (dhea) 25 mg capsule 25 mg PO DAILY 03/10/24 06/18/24 Unknown History Exam Height,Weight and Vital Signs: Height 5 ft 5 in Weight 84.368 kg Pertinent Lab Results Pertinent Lab Results: Laboratory Tests 06/10/24 07:24 Sodium 141 Potassium 3.9 Chloride 106 Carbon Dioxide 27 BUN 15 Creatinine 1.02 Assessment and Plan Assessment Anesthesia Assessment: Chart Reviewed Final Anesthetic Review Family History of Problems with Anesthesia: No History of Problems with Anesthesia: No Documented by User: Odette Nunez MD 06/20/24 07:59 PMFSH Past Medical History Medical History Chronic low back pain Tinnitus DJD (degenerative joint disease) Anxiety [place] (hard of hearing) Hyperlipidemia Arthritis Golfer's elbow Family History Family History Maternal Aunt Breast cancer Surgical History Surgical History Hx of umbilical hernia repair Hx of umbilical hernia repair Social History Social History Housing: House Are you a primary physician assistant primary care to a significant other at home: No Do you presently have visiting nurse or other home services: No Patient Tobacco Use Status: Former Tobacco user Years Smoked: College years e-Cigarette/Vaping Use: Never Used Have you been hit, kicked, punched, or otherwise hurt by someone within the past year? 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 Current occupational exposures/hazards: No Cognitive needs: No Hearing needs: No Vision needs: Yes (glasse/ contact lense) Meds Allergies Allergy/AdvReac Type Severity Reaction Status Date / Time No Known Allergies Allergy Verified 06/20/24 06:38 Home Medications ?Medication ?Instructions ?Recorded ?Confirmed ?Last Taken ?Type estradiol 0.075 mg/24 hr 1 patch transdermal 2XW 12/18/23 06/18/24 Unknown History semiweekly transdermal patch (Mona) progesterone micronized 200 mg 200 mg PO BEDTIME 12/18/23 06/18/24 Unknown History capsule prasterone (dhea) 25 mg capsule 25 mg PO DAILY 03/10/24 06/18/24 Unknown History Exam Airway Mallampati Class: II TM Dist: >3cm Neck ROM: Full Heart: rrr Lungs: cta Assessment and Plan Assessment Anesthesia Assessment: Anesthesia Plan Discussed Final Anesthetic Review NPO: Yes ASA Class: II Final Preanesthetic Review: No Changes in Pt Med Stat, Meds/Allgs Chart Reviewed, Consent Obtained/Reviewed and Anes Risks/Benef Reviewed Patient Risk: Intermediate Procedure Risk: Low Anesthetic Plan Anesthetic Plan: GA Disposition: Standard PACU
--- NOTE | 2024-06-19 12:36 | P.HPSUR_ITS ---
Pre-Procedural Eval Section A - 24 Hr Update-Section A only Date of Service: 06/20/24 The patient is an INPATIENT: No Changes since office visit: No Cold of Flu in the past 2 weeks, No New Medical Problems, No Changes in Medication and No Patient answered all questions Section B - Complete if H&P > 30 days Chief Complaint: Ventral hernia without obstruction or gangrene Allergies: Allergies Allergy/AdvReac Type Severity Reaction Status Date / Time No Known Allergies Allergy Verified 06/12/24 08:59 Review of Systems Sugical H&P ROS: Negative: Constitution, Cardiovascular, Respiratory, Neurological, Psychiatric, Hem-Onc, Allergic/Immunologic, Gastrointestinal, Genitourinary, Musculoskeletal, Integumentary, Endocrine and Eyes /Ears/Nose/Throat Exam Surgical H&P Exam: Normal: HEENT, Normal: Heart, Normal: Lungs, Normal: Extremities, Normal: Abdomen, Normal: Skin and Normal: Neurological Plan I have reviewed the history and physical and performed a pertinent physical examination on my patient. No changes have occurred unless specified. Time Spent With Patient Time: Total time managing care of this patient today ____ minutes.
[2024-06-20] VITALS (7 sets, daily range): BP systolic 111–136; BP diastolic 64–83; PULSE 45–77; RESP 16–18; TEMP 36.1–36.7; O2SAT 95–100; BMI 30.8
[2024-06-20] MEDS: Lactated Ringers 1,000 ML 100 ML IVCONT (06:29)
--- NOTE | 2024-06-20 08:02 | P.OP_ITS ---
Operative Note Operative Note Date of Service: 06/20/24 Narrative: Preoperative diagnosis: [] Incarcerated supraumbilical ventral hernia Postop diagnosis: [] The same Procedure [] open supraumbilical ventral herniorrhaphy with Bard mesh Surgeon: [] Joao Developer Prover Mechanical: [] Taylor Type of Anesthesia: [] General Indication for surgery: [] Roughly 3 cm incarcerated supraumbilical ventral hernia with omental contents Findings: [] Patient brought to the operating room, placed on operative table in supine position, after an adequate level of general anesthesia was induced, the patient's abdomen is prepped draped in usual sterile fashion using a transverse incision in the supraumbilical area over the hernia in question, this carried down through skin, subcutaneous tissue, where hernia sac was identified and circumferentially dissected down through the fascia. Sac was opened were incarcerated omental contents were amputated using Bovie. Fascia margins were circumferentially cleared. Inappropriate sized Bard mesh was placed in this defect, and the superficial layer of the mesh was circumferentially sutured to the surrounding fascia using interrupted 0 Ethibond suture. At completion of the procedure, mesh was in good position with no gaps or tension. Wound was irrigated, secured hemostasis, and closed in the following manner; subcutaneous tissue was reapproximated using interrupted 3-0 Vicryl sutures. Skin was closed using interrupted inverted dermal 3-0 Vicryl sutures followed by Steri-Strips and sterile dressings. Wound was infiltrated at the beginning and at the end with 0.5% Marcaine/1% lidocaine. Sponge, needle, and instrument counts were reported correct. Patient tolerated the procedure well and emerged from anesthesia stable condition. EBL minimal
== END 2024-06-20 09:20 | disposition home or self-care (01) ==
PROVIDERS: PCP Nurse Practitioner Family; Visit Provider Surgery
PROC: (CPT 49592; principal; 2024-06-20 07:30)
DX: K43.6 Other and unspecified ventral hernia with obstruction, without gangrene (principal); Z98.890 Other specified postprocedural states; Z87.891 Personal history of nicotine dependence
CPT/HCPCS: 49592; 88304; C1781; J0131; J0690; J1100; J1885; J2003; J2405; J2704; J2795; J3010

== ENCOUNTER → 2024-06-20 06:08 | Outpatient (BNV) | payer BC, SELFPAY | PROVIDERS: PCP Nurse Practitioner Family; Visit Provider Surgery | DX: K43.9 Ventral hernia without obstruction or gangrene (principal) | CPT/HCPCS: 49594 ==

== ENCOUNTER 2024-07-01 08:45 | Outpatient (AMB) | payer BC, SELFPAY ==
--- NOTE | 2024-07-01 08:53 | MHC.OFFVIS ---
Intake Visit Reasons: s/p Repair supraumbilical ventral hernia w/mesh Intake Note: Patient here s/p repair supraumbilical ventral hernia w/mesh. Reports incisions healing well. Patient c/o: experienced severe pain after surgery but much improved now. No longer taking rx pain meds. SX: 06-20-2024 School Health Aide Required: No Accompanied by: Self / Same As Patient Allergies No Known Allergies Allergy (Verified 07/01/24 08:54) HPI Comments Details: Patient presents for follow-up status post supraumbilical ventral hernia repair. He is doing well. He is tolerating a diet. Having regular bowel habits. She is increasing her activity level. She has minimal incisional discomfort. [facility] Medical History Chronic low back pain Tinnitus DJD (degenerative joint disease) Anxiety [place] (hard of hearing) Hyperlipidemia Arthritis Golfer's elbow Surgical History (Updated 07/01/24 @ 09:36 by Reinaldo Shepherd MD) Ventral hernia (06/20/24) Hx of umbilical hernia repair Hx of umbilical hernia repair Family History Maternal Aunt Breast cancer Social History Housing: House Are you a primary personal care home administrator to a significant other at home: No Do you presently have visiting nurse or other home services: No Patient Tobacco Use Status: Former Tobacco user Years Smoked: College years e-Cigarette/Vaping Use: Never Used service: No Current occupational status: employed 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 Supraumbilical and umbilical wounds well healed. Assessment & Plan Assessment & Plan (1) Status post repair of ventral hernia: Code(s): Z98.890 - Other specified postprocedural states; Z87.19 - Personal history of other diseases of the digestive system Category: Medical Plan Patient was been given local instructions including avoiding strenuous activities next few weeks time and will otherwise follow-up p.r.n.. All questions answered. Coding Level of Care Code Global (17858) Diagnoses Status post repair of ventral hernia Z98.890; Z87.19
== END 2024-07-01 08:59 | disposition home or self-care (01) ==
PROVIDERS: PCP Nurse Practitioner Family; Visit Provider Surgery
DX: K43.9 Ventral hernia without obstruction or gangrene (principal); Z09 Encounter for follow-up examination after completed treatment for conditions other than malignant neoplasm
CPT/HCPCS: 99212

== ENCOUNTER → 2024-07-01 08:45 | Outpatient (BNVA) | payer BC, SELFPAY | PROVIDERS: PCP Nurse Practitioner Family; Visit Provider Surgery ==

== ENCOUNTER 2024-08-12 08:22 | Outpatient (AMB) | payer BC, SELFPAY ==
--- NOTE | 2024-08-12 08:25 | A.OFFPC_ITS ---
Vital Signs 08/12/24 08:29 Height 5 ft 5 in Weight 185 lb BMI 30.8 BP 104/84 Blood Pressure Location Rt brachial Position Sitting Respiration 16 Pulse 84 Pulse Source Pulse Oximeter Temp 98.2 F Temp Source Oral Pulse Oximetry (%) 98 Oxygen Delivery Method Room Air Intake Visit Reasons: fu START wellbutrin/wt loss Intake Note: patient here for follow up on wellbutrin/wt loss Program Director/Traffic Director Required: No Is last menstrual period known: No Post menopausal: No Patient : No Allergies No Known Allergies Allergy (Verified 08/12/24 08:52) Medication List - Last Reconciled 08/12/24 by Candice Chiang, COAT EXAMINER- bupropion HCl XL (Wellbutrin XL) 150 mg PO QAM estradiol (Mona) 1 patch transdermal 2XW progesterone micronized 200 mg PO BEDTIME Tobacco use date assessed: 08/12/24 Dental Screening Dental Screen Date: 08/12/24 Did you have a dental visit in the last 12 months?: Yes Did you have a dental problem in the last 6 months where you did not have access to dental care?: No Was dental information given to patient?: Patient has dentist HPI HPI Comments History of Present Illness Details 54-year-old female with generalized anxi ety disorder, mild DJD R shoulder, perimenopause, tinnitus, HUGHES, obese, HLD, chronic low back pain Surgical hx umbilical hernia repair in childhood, varicose vein repair, s/p umbilical hernia w/mesh on 05-08-2024. 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 Colon 2019 need report ? Mammo 11/2023 ? DEXA n/a not in menopause ? PAP UTD, Dr Acosta, need report ? Tdap thinks UTD; had shingles vaccine 2019 Specialists: TRANSPLANT CASE MANAGER Dr Acosta @ [facility] ENT Dr Penny head MRI and hearing test; no cause. Gen Surgeon @ [facility] [place] Here today for 8 week fu FU in 8 weeks, wt loss/wellbutrin The patient reports no significant change in her weight management efforts despite being on bupropion for potential appetite suppression and energy improvement. She acknowledges that while she does not experience a strong hunger decrease, she feels somewhat less anxious. There are no adverse side effects noted or exacerbated symptoms, and the medication does not make her feel foggy. Wt is the same. New c/o persistent issue with her right shoulder diagnosed with arthritis via x-ray approximately one year ago. The shoulder pain has become increasingly bothersome, especially when engaging in certain motions such as overhead pulling and specific gym activities. There has been no imaging since the original di agnosis. The patient also reports right hip pain, which she describes as a joint-related issue causing discomfort particularly when descending stairs or turning a certain way. She associates this discomfort with possible repetitive activities and mentions having had sciatica, though the current complaint is anterior hip pain. No imaging has been performed for her right hip. Uses Ibu 800mg with + relief. Would like rx. The patient has been using estrogen patches with estradiol cream, but has noted literature associating right shoulder pain with its usage, prompting her concern. She restarted gym workouts only recently due to a past hernia surgery which kept her inactive for twelve weeks, and she is cautious about resuming her usual routines. Review of Systems - Musculoskeletal: Reports right shoulde r pain and right hip pain aggravated by certain movements. - Neurological: Denies vertigo but menti ons a past history of tendinitis. - Constitutional: Reports fatigue. Physical Exam awake alert NAD MMM RRR LS CTAB - Musculoskeletal- - Right Shoulder: Ful l range of motion observed with noted discomfort on overhead movement. - Right Hip- Mild tenderness on deep pal pation without bony abnormality. Negative straight leg raising test with noted discomfort during active hip flexion. Mood and affect WNL Plan - Bupropion: Discussed increasing dosage for potential enhanced benefits on weight management and mood stabilization. - Right Shoulder Arthritis: Recommend mo difying gym activities to avoid exacerbating pain, and consider topical NSAIDs like Voltaren for symptomatic relief. - Right Hip Pain: Monitor pain and avoid certain movements that worsen the symptoms; consider imaging if symptoms persist. - Estradiol Cream: Patient plans to munroe sition to a different brand for cost- effectiveness; will monitor shoulder pain relationship. Patient was informed and verbally consented to the use of an ambient scribe for clinic note documentation during this visit. Discussion Notes I discussed with the patient the management of her current medications, which include bupropion and estradiol cream. We addressed the potential to increase bupropion for better control of weight management and mood symptoms. I provided guidance on using a topical NSAID for joint pain and advised against combined use to avoid systemic side effects. I encouraged maintaining physical activity with awareness of not overusing affected joints. Follow-up was advised as initially scheduled unless otherwise necessary. Patient Instructions - Increase bupropion dosage to 300 mg on ce the current prescription is completed. - Use Voltaren gel on affected joints as needed before workouts. Ibu 800mg Rx sent - Monitor hip and shoulder pain, avoidin g activities that exacerbate pain. - Complete the current estradiol cream a nd observe for any symptom changes. - Schedule follow-up visit in October or o if symptoms worsen. - Continue gym activities cautiously, ob serving any increase in symptoms. This note is constructed using voice recognition software. While every effort has been made to ensure accuracy in brownell operator, still errors may have been included Sometimes, these errors may affect the content or meaning of the given sentence . Total time spent caring for the patient today was 30 minutes. This includes time spent before the visit reviewing the chart, time spent during the visit, and time spent after the visit on documentation PFSH Medical History (Updated 08/13/24 @ 16:29 by Candice Chiang, [facility]-) Chronic low back pain Tinnitus DJD (degenerative joint disease) Anxiety [place] (hard of hearing) Hyperlipidemia Arthritis Golfer's elbow Surgical History (Updated 08/13/24 @ 16:29 by Candice Chiang, 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 Current occupational exposures/hazards: No Cognitive needs: No Hearing needs: No Vision needs: Yes (glasse/ contact lense) Questionnaire Thrive Questionnaire Date Thrive assessed: 06/11/24 I am a: Patient What is your living situation today?: I have a steady place to live Within the past 12 months, did the food you bought not last and you didn't have the money to get more?: Never true Within the past 12 months, did you worry whether your food would run out before you got money to buy more?: Never true Do you have trouble paying for medicines?: No Do you have trouble getting transportation to medical appointments?: No Do you have trouble paying your heating and electricity bill?: No Do you have trouble taking care of your child, family member or friend?: No Do you have trouble with day-to-day activities such as bathing, preparing meals, shopping, managing finances, etc.?: No Are you currently unemployed and looking for a job?: No Are you interested in more education?: No Please select the resources that you would like help with: None Currently or been in a relationship where the following occur: No concerns reported THRIVE Score: 0 LOLA-7 AMB Questionnaire LOLA-7 Date LOLA - 7 assessed: 06/12/24 Source: Developed by Drs. Edwin Antonio, Deidre Aviles, Armin Bautista and colleagues, with an educational francis from [employer]. Physical exam (Primary Care) Vital Signs: Last Vital Signs Temp 98.2 F 08/12/24 08:29 Pulse 84 08/12/24 08:29 Resp 16 08/12/24 08:29 BP 104/84 08/12/24 08:29 Pulse Ox 98 08/12/24 08:29 Oxygen Delivery Method Room Air 08/12/24 08:29 BMI result Body Mass Index 30.8 Tobacco/Smoking Status: Tobacco use Status Tobacco use date assessed 08/12/24 08/12/24 08:31 Patient Tobacco Use Status Former Tobacco user 08/12/24 08:27 e-Cigarette/Vaping Use Never Used 08/12/24 08:27 Thrive Assessment: Date of Thrive Assessment Date Thrive assessed 06/11/24 08/12/24 08:27 Currently or been in a relationship where the following occur: No concerns reported Coding Level of Care Code Est Pt Level 4 (03651) Complex EM visit Add On G2211 Diagnoses Class 1 obesity with serious comorbidity and body mass index (BMI) of 31.0 to 31.9 in adult, unspecified obesity type E66.811; Z68.31 Obesity type: unspecified obesity type Serious obesity comorbidity presence: with serious comorbidity BMI 31.0-31.9,adult Z68.31 Primary osteoarthritis of right shoulder M19.011 Osteoarthritis type: primary Right hip pain M25.551 Assessment & Plan Assessment & Plan (1) Class 1 obesity with body mass index (BMI) of 31.0 to 31.9 in adult: Comment: HLD Code(s): E66.811 - Obesity, class 1; Z68.31 - Body mass index [BMI] 31.0-31.9, adult Category: Medical Qualifiers: Obesity type: unspecified obesity type Serious obesity comorbidity presence: with serious comorbidity Qualified Code(s): E66.811 - Obesity, class 1; Z68.31 - Body mass index [BMI] 31.0-31.9, adult (2) BMI 31.0-31.9,adult: Code(s): Z68.31 - Body mass index [BMI] 31.0-31.9, adult Category: Medical (3) Osteoarthritis of right shoulder: Code(s): M19.011 - Primary osteoarthritis, right shoulder Category: Medical Qualifiers: Osteoarthritis type: primary Qualified Code(s): M19.011 - Primary osteoarthritis, right shoulder (4) Right hip pain: Code(s): M25.551 - Pain in right hip Category: Medical Plan . Medications: New ibuprofen 800 mg PO Q8H PRN 30 tabs 2RF pain bupropion HCl XL (Wellbutrin XL) 300 mg PO QAM 90 tabs 0RF Discontinued bupropion HCl XL (Wellbutrin XL) Discontinued Reason: Doctor's Order 150 mg PO QAM 90 tabs 0RF
[2024-08-12 08:29] VITALS: BP 104/84; PULSE 84; RESP 16; TEMP 36.8; O2SAT 98; BMI 30.8
== END 2024-08-12 09:06 | disposition home or self-care (01) ==
PROVIDERS: PCP Nurse Practitioner Family; Visit Provider Nurse Practitioner Family
DX: E66.811 Obesity, class 1 (principal); Z68.31 Body mass index [BMI] 31.0-31.9, adult; M19.011 Primary osteoarthritis, right shoulder; M25.551 Pain in right hip

== ENCOUNTER 2024-10-24 08:59 | Outpatient (AMB) | payer BC, SELFPAY ==
--- NOTE | 2024-10-24 09:01 | A.OFFPC_ITS ---
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 Allergies No Known Allergies Allergy (Verified 10/24/24 09:22) Medication List - Last Reconciled 10/24/24 by Candice Chiang, FISCAL TECHNICIAN- bupropion HCl XL (Wellbutrin XL) 300 mg PO QAM estradiol (Mona) 1 patch transdermal 2XW ibuprofen 800 mg PO Q8H PRN minoxidil 10 mg PO DAILY progesterone micronized 200 mg PO BEDTIME Tobacco use date assessed: 10/24/24 Dental Screening Dental Screen Date: 10/24/24 Did you have a dental visit in the last 12 months?: Yes Did you have a dental problem in the last 6 months where you did not have access to dental care?: No Was dental information given to patient?: Patient has dentist HPI HPI Comments History of Present Illness Details 54-year-old female with generalized anxi ety disorder, mild DJD R shoulder, perimenopause, tinnitus, [place], obese, HLD, chronic low back pain Surgical hx umbilical hernia repair in childhood, varicose vein repair, s/p umbilical hernia w/mesh on 05-08-2024. 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 Colon 2019 need report ? Mammo 11/2023 ? DEXA n/a not in menopause ? PAP UTD, Dr Acosta, need report ? 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 [place] [facility] [place] History of Present Illness - The patient is a 54-year-old female pr esenting with a follow-up on medical assisted weight loss and management of perimenopausal symptoms. 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 - Reports a mild weight reduction alongs douglas improved physical activity regime at the gym - Presented symptoms of perimenopause, l eading to alterations in hormonal therapy (increased progesterone). - New maintenance therapies include the suspension of DHEA and the initiation of minoxidil, the latter causing increased hair growth. managed by menopause specialists and [facility] Exam awake alert NAD MMM RRR LS CTAB Mood and affect appropriate Discussion Notes During the visit, we discussed the patient's continued efforts with medically assisted weight loss using bupropion, and I noted the positive indication of a 3-pound weight loss. The patient shared her experience with hormone replacement therapy adjustment for perimenopausal symptoms, leading to mild nausea, which she is managing. We also touched on her lifestyle changes post-job loss, indicating an increased activity level at the gym, which supports her weight management efforts. The usage of minoxidil and its side effects were discussed, though no significant adjustments needed. I advised continuing her current regimen while monitoring her symptoms and overall progress. We scheduled a follow-up for a physical and medication review in three months, and a bupropion refill was arranged to prevent any lapse in therapy. Assessment and Plan 1. Obesity: The patient is advised to ma intain current bupropion dosage and exercise regimen, monitoring progress through self-reported weight and physical activity to optimize weight loss and health improvement. 2. Perimenopausal symptoms: Hormone repl acement therapy adjustments observed and managed without significant adverse effects aside from mild nausea, which remains under review for tolerability and efficacy. 3. Mood concerns: Mood status remains st able with no signs of clinical depression, supporting continued focus on self-care and lifestyle adaptations to manage stress effectively. 4. Unspecified hair growth due to medica tion: Monitor ongoing effects of minoxidil, considering adjustments based on patient's tolerance and hair growth in unwanted areas. Patient Instructions - Continue with current bupropion and ex ercise routine. - Monitor for any significant changes re lated to perimenopausal symptoms or new side effects. - Maintain appointments with menopause s pecialist and report any persistent nausea. - Follow stress reduction and healthy li festyle practices, emphasis on self- care. - Adhere to hormonal therapy doses as in structed and consult if issues persist or worsen. RTO 3 months for CPE/med check, sooner PRN Consent Patient was informed and verbally consented to the use of an ambient scribe for clinic note documentation during this visit. Total time spent caring for the patient today was 30 minutes. This includes time spent before the visit reviewing the chart, time spent during the visit, and time spent after the visit on documentation, reviewing laboratory results, diagnostic imaging, medications, performing a medically necessary evaluation, counseling on diagnoses, care coordination, ordering appropriate tests, ordering appropriate medications, review of tests performed by other providers, reporting test results with the patient, communication with other healthcare providers. PFSH Medical History (Updated 10/24/24 @ 07:19 by Candice Chiang, FISCAL TECHNICIAN-) Anxiety Arthritis Chronic low back pain DJD (degenerative joint disease) Golfer's elbow History of mammogram [place] (hard of hearing) Hyperlipidemia Tinnitus Surgical History (Updated 10/24/24 @ 07:19 by AMADEO Yates-HU) History of colonoscopy Hx of umbilical hernia repair Hx of umbilical hernia repair Status post repair of ventral hernia Ventral hernia (06/20/24) Family History Maternal Aunt Breast cancer Social History Housing: House Are you a primary daycare worker to a significant other at home: No Do you presently have visiting nurse or other home services: No Patient Tobacco Use Status: Former Tobacco user Years Smoked: College years e-Cigarette/Vaping Use: Never Used Second Hand Smoke Exposure: Yes service: No Current occupational status: employed 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 1. Little interest or pleasure in doing things: not at all 2. Feeling down, depressed, or hopeless: not at all 3. Trouble falling or staying asleep, or sleeping too much: not at all 4. Feeling tired or having little energy: not at all 5. Poor appetite or overeating: not at all 6. Feeling bad about yourself - or that you are a failure or have let yourself or your family down: not at all 7. Trouble concentrating on things, such as reading the newspaper or watching television: not at all 8. Moving or speaking so slowly that other people could have noticed. Or the opposite - being so fidgety or restless that you have been moving around a lot more than usual: not at all 9. Thoughts that you would be better off or of hurting yourself in some way: not at all Total score: 0 Depression Screening Interpretation: Negative Depression Screening Done: Yes 21783 - PHQ-9 Billing: Yes Source: Developed by Drs. Edwin Antonio, Deidre Aviles, Armin Bautista and colleagues, with an educational francis from [employer]. Thrive Questionnaire Date Thrive assessed: 10/17/24 I am a: Patient What is your living situation today?: I have a steady place to live Within the past 12 months, did the food you bought not last and you didn't have the money to get more?: Never true Within the past 12 months, did you worry whether your food would run out before you got money to buy more?: Never true Do you have trouble paying for medicines?: No Do you have trouble getting transportation to medical appointments?: No Do you have trouble paying your heating and electricity bill?: No Do you have trouble taking care of your child, family member or friend?: No Do you have trouble with day-to-day activities such as bathing, preparing meals, shopping, managing finances, etc.?: No Are you currently unemployed and looking for a job?: No Are you interested in more education?: No Please select the resources that you would like help with: None Currently or been in a relationship where the following occur: No concerns reported THRIVE Score: 0 AUDIT C Alcohol Use Questionnaire (AUDIT-C) 1. How often do you have a drink containing alcohol?: 2-3 times a week 2. How many drinks containing alcohol do you have on a typical day when you are drinking?: 1 or 2 3. How often do you have six or more drinks on one occasion?: Never Total Score: 3 Score Reviewed/Action Taken: Yes LOLA-7 AMB Questionnaire LOLA-7 Date LOLA - 7 assessed: 06/12/24 Feeling nervous, anxious, or on edge: 0 = Not at all Not being able to stop or control worryin = Not at all Worrying too much about different things: 0 = Not at all Trouble relaxin = Not at all Being so restless that it is hard to sit still: 0 = Not at all Becoming easily annoyed or irritable: 0 = Not at all Feeling afraid as if something awful might happen: 0 = Not at all Total LOLA-7 score (0-4 normal; 5-9 mild; 10-14 moderate; 15-21 severe): 0 Source: Developed by Drs. Edwin Antonio, Deidre Aviles, Armin Bautista and colleagues, with an educational francis from [employer]. LOLA-7 Assessment Billing LOLA-7 Assessment Tool: LOLA-7 Assessment 59707 Physical exam (Primary Care) Vital Signs: Last Vital Signs Temp 97.5 F 10/24/24 09:05 Pulse 80 10/24/24 09:05 Resp 14 10/24/24 09:05 BP 106/70 10/24/24 09:05 Pulse Ox 98 10/24/24 09:05 Oxygen Delivery Method Room Air 10/24/24 09:05 BMI result Body Mass Index 30.4 Tobacco/Smoking Status: Tobacco use Status Tobacco use date assessed 08/12/24 10/24/24 09:01 Patient Tobacco Use Status Former Tobacco user 10/24/24 09:01 e-Cigarette/Vaping Use Never Used 10/24/24 09:01 PHQ-9: PHQ-9 Score PHQ-9: Total score 0 10/24/24 09:28 Depression Screening Interpretation: Negative Thrive Assessment: Date of Thrive Assessment Date Thrive assessed 10/17/24 10/24/24 09:01 Currently or been in a relationship where the following occur: No concerns reported Coding Level of Care Code Est Pt Level 4 (66282) Complex EM visit Add On G2211 Diagnoses BMI 31.0-31.9,adult Z68.31 Class 1 obesity with serious comorbidity and body mass index (BMI) of 31.0 to 31.9 in adult, unspecified obesity type E66.811; Z68.31 Obesity type: unspecified obesity type Serious obesity comorbidity presence: with serious comorbidity Perimenopausal N95.1 LOLA (generalized anxiety disorder) F41.1 Additional Codes LOLA-7 Assessment Billing - LOLA-7 Assessment Tool: LOLA-7 Assessment [id number] ([id number]) PHQ-9 - 43701 - PHQ-9 Billing: Yes ([id number]) Assessment & Plan Assessment & Plan (1) BMI 31.0-31.9,adult: Code(s): Z68.31 - Body mass index [BMI] 31.0-31.9, adult Category: Medical (2) Class 1 obesity with body mass index (BMI) of 31.0 to 31.9 in adult: Comment: HLD Code(s): E66.811 - Obesity, class 1; Z68.31 - Body mass index [BMI] 31.0-31.9, adult Category: Medical Qualifiers: Obesity type: unspecified obesity type Serious obesity comorbidity presence: with serious comorbidity Qualified Code(s): E66.811 - Obesity, class 1; Z68.31 - Body mass index [BMI] 31.0-31.9, adult (3) Perimenopausal: Code(s): N95.1 - Menopausal and female climacteric states Category: Medical (4) LOLA (generalized anxiety disorder): Code(s): F41.1 - Generalized anxiety disorder Category: Medical Plan . Medications: Refilled bupropion HCl XL (Wellbutrin XL) 300 mg PO QAM 90 tabs 1RF
[2024-10-24 09:05] VITALS: BP 106/70; PULSE 80; RESP 14; TEMP 36.4; O2SAT 98; BMI 30.4
== END 2024-10-24 09:35 | disposition home or self-care (01) ==
LOC: HO.HMCFM 09:00
PROVIDERS: PCP Nurse Practitioner Family; Visit Provider Nurse Practitioner Family
DX: Z68.31 Body mass index [BMI] 31.0-31.9, adult (principal); E66.811 Obesity, class 1; N95.1 Menopausal and female climacteric states; F41.1 Generalized anxiety disorder

== ENCOUNTER → 2024-10-24 08:59 | Outpatient (BNVA) | payer BC, SELFPAY | PROVIDERS: PCP Nurse Practitioner Family; Visit Provider Nurse Practitioner Family | DX: E66.811 Obesity, class 1 (principal); Z68.31 Body mass index [BMI] 31.0-31.9, adult; N95.1 Menopausal and female climacteric states; F41.1 Generalized anxiety disorder | CPT/HCPCS: 96127 ==

== ENCOUNTER 2025-02-06 11:41 | Outpatient (AMB) | payer BC, SELFPAY ==
--- NOTE | 2025-02-06 11:46 | A.OFFPC_ITS ---
Vital Signs 02/06/25 11:49 Height 5 ft 5 in Weight 175 lb 8 oz BMI 29.2 BP 101/69 Blood Pressure Location Rt brachial Position Sitting Respiration 12 Pulse 72 Pulse Source Pulse Oximeter Temp 97.2 F Temp Source Oral Pulse Oximetry (%) 99 Oxygen Delivery Method Room Air Intake Visit Reasons: 3 months CPE/Med check Intake Note: CPE with med check Power Wheelchair Mechanic Required: No Allergies No Known Allergies Allergy (Verified 02/06/25 12:16) Medication List - Last Reconciled 02/06/25 by AMADEO Yates- bupropion HCl XL (Wellbutrin XL) 300 mg PO QAM estradiol (Mona) 1 patch transdermal 2XW ibuprofen 800 mg PO Q8H PRN minoxidil 10 mg PO DAILY progesterone micronized 200 mg PO BEDTIME Tobacco use date assessed: 02/06/25 Dental Screening Dental Screen Date: 02/06/25 Did you have a dental visit in the last 12 months?: Yes Did you have a dental problem in the last 6 months where you did not have access to dental care?: No Was dental information given to patient?: Patient has dentist HPI HPI Comments History of Present Illness Details 54-year-old female with generalized anxi ety disorder, mild DJD R shoulder, perimenopause, tinnitus, CURYUNG, obese, HLD, chronic low back pain Surgical hx umbilical hernia repair in childhood, varicose vein repair, s/p umbilical hernia w/mesh on 05-08-2024. 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 Colon 2018 need report, 10 year recall ? Mammo 11/2024 report rec'd ? DEXA n/a not in menopause ? PAP 2022 wnl, Dr Acosta, report rec'd ? 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 [place] [facility] [place] - 2024 new Rx History of Present Illness - The patient is a 54-year-old female pr esenting for a wellness visit and complete physical exam. - Anxiety Disorder/Wt managed with Wellb utrin. - Hair loss treatment with minoxidil; no tices improvement. - Menopausal symptoms managed with hormo ne therapy. - Diet-controlled hyperlipidemia; not cl inically significant in this visit. - Reports worsening tinnitus, L>R and sl ight hearing loss; saw ENT in the past. Does not wish to pursue further @ this time. 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 - Housing: The patient's boyfriend is mo ving in, while children have moved out. - Exercise: Frequently visits the gym, a bout four to five times per week. - Son getting ; going to [place] w/ Friend Health Maintenance - Recent mammogram in November, results nor mal. - Last Tdap vaccine was in 2011; the pat ient received a Tdap vaccine update during the visit. - Recent eye exam with updated prescript ion. Review of Systems - General: Reports recent weight reducti on. - Psychiatric: Denies worsening anxiety. - Cardiac: Denies palpitations or chest pain. - Respiratory: Denies cough or shortness of breath. - Dermatological: Reports improved hair growth with minoxidil. - Neurological: Reports worsened tinnitu s. - Ophthalmological: Recently had an eye exam with updated prescription. Physical Exam General: Well developed, well nourished, in no acute distress. Appears stated age. Head: Normocephalic, atraumatic. Eyes: Pupils are equal, round and reactive to light and accommodation. Conjunctivae are clear. Vision grossly normal. Ears: TMs clear AU, EACS WNL. Reports worsening tinnitus, especially in the left ear. Nose: Patent, without discharge. Neck: Supple, no adenopathy or thyromegaly. Breast: Edu on SBE. Lungs: Clear to auscultation bilaterally. No rales, rhonchi or wheeze noted. Good air flow in all nolasco. Heart: Regular rate and rhythm. No murmurs, click, rubs or gallops are noted. Abdomen: Bowel sounds present in all quadrants. The abdomen is soft, nontender, with no masses or organomegaly noted. No hernias are noted. : Deferred. Reviewed recommendations for routine FOSTER CARE WORKER. Pulses: Peripheral pulses are equal and palpable bilaterally. Extremities: No clubbing, cyanosis nor edema is noted. Neurologic: Gait and station normal. Cranial Nerves 2-12 intact. Motor strength grossly symmetrical and intact. No sensory loss. Balance normal. Skin: No rashes, ulcers, or lesions noted. Turgor is good. Skin color is good. Hair and nails are without abnormalities. Psych: Normal eye contact, affect and mood appropriate, and normal interactions. Patient is alert and appropriate to context. Results - Previous colonoscopy in 2019, no adver se findings; report not on file - Recent mammogram, normal results labs 06/10/24 normal except elevated TC, LDL Discussion Notes During the visit, I reviewed the patient's medication regimen for generalized anxiety disorder, confirming that the current use of Wellbutrin 300 mg/day is effective. I discussed the benefits of its use in weight loss as well. We also addressed the patient's hyperlipidemia, concluding no immediate changes were necessary, given stable dietary management. I advised the patient on the monitoring of menopausal symptoms with estradiol and progesterone therapy, and we spoke about possible alternatives to oral minoxidil for hair loss due to side effects of facial hair growth. Regarding the patient's tinnitus, I confirmed there is currently no definitive remedy or advanced treatment outside hearing aids to alleviate the symptoms. I provided guidance on a potential benefit from utilizing AirPods with iPhone hearing capabilities as an alternative method to objectively assess extent and potentially benefit from environmental sound enhancement. Assessment and Plan 1. Generalized Anxiety Disorder/Wt Mgmt - Continue Wellbutrin 300 mg daily for a nxiety and weight management. 2. Hyperlipidemia - Maintain diet control; no medication r equired. 3. Menopausal Symptoms - Continue estradiol and progesterone th erapy. 4. Hair Loss - Transition to topical minoxidil to les sen facial hair growth. - this is her wish, managed by outside prescriber 5. Tinnitus - Consider AirPods for hearing assessmen t. 6. Tdap today; sent colon info via [employer] 1 YEAR CPE SOONER PRN Patient Instructions - Continue taking Wellbutrin, estradiol, and progesterone as prescribed. - Maintain your current diet for hyperli pidemia. - Use the gym regularly for wellness. - Explore using the iPhone hearing test with AirPods. - Update us if new side effects occur or management changes are needed. Consent Patient was informed and verbally consented to the use of an ambient scribe for clinic note documentation during this visit. [facility] Medical History (Updated 02/06/25 @ 13:42 by Candice Chiang, [facility]) Anxiety Arthritis Chronic low back pain DJD (degenerative joint disease) Golshabana's elbow History of mammogram (~11/2024) CURYUNG (hard of hearing) Hyperlipidemia Tinnitus Surgical History (Updated 02/06/25 @ 13:42 by Candice Chiang, [facility]) History of colonoscopy (~2018) Hx of umbilical hernia repair Hx of umbilical hernia repair Status post repair of ventral hernia Ventral hernia (06/20/24) Family History Maternal Aunt Breast cancer Social History Housing: House Are you a primary doggy daycare activities director to a significant other at home: No Do you presently have visiting nurse or other home services: No Patient Tobacco Use Status: Former Tobacco user Years Smoked: College years e-Cigarette/Vaping Use: Never Used Second Hand Smoke Exposure: Yes service: No Current occupational status: employed 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 1. Little interest or pleasure in doing things: not at all 2. Feeling down, depressed, or hopeless: not at all 3. Trouble falling or staying asleep, or sleeping too much: not at all 4. Feeling tired or having little energy: not at all 5. Poor appetite or overeating: not at all 6. Feeling bad about yourself - or that you are a failure or have let yourself or your family down: not at all 7. Trouble concentrating on things, such as reading the newspaper or watching television: not at all 8. Moving or speaking so slowly that other people could have noticed. Or the opposite - being so fidgety or restless that you have been moving around a lot more than usual: not at all 9. Thoughts that you would be better off or of hurting yourself in some way: not at all Total score: 0 Depression Screening Interpretation: Negative Depression Screening Done: Yes 15481 - PHQ-9 Billing: Yes Source: Developed by Drs. Deidre Carney Kurt Kroenke and colleagues, with an educational francis from [employer]. Thrive Questionnaire Date Thrive assessed: 02/06/25 I am a: Patient What is your living situation today?: I have a steady place to live Within the past 12 months, did the food you bought not last and you didn't have the money to get more?: Never true Within the past 12 months, did you worry whether your food would run out before you got money to buy more?: Never true Do you have trouble paying for medicines?: No Do you have trouble getting transportation to medical appointments?: No Do you have trouble paying your heating and electricity bill?: No Do you have trouble taking care of your child, family member or friend?: No Do you have trouble with day-to-day activities such as bathing, preparing meals, shopping, managing finances, etc.?: No Are you currently unemployed and looking for a job?: No Are you interested in more education?: No Please select the resources that you would like help with: None Currently or been in a relationship where the following occur: No concerns reported THRIVE Score: 0 LOLA-7 AMB Questionnaire LOLA-7 Date LOLA - 7 assessed: 02/06/25 Feeling nervous, anxious, or on edge: 0 = Not at all Not being able to stop or control worryin = Not at all Worrying too much about different things: 0 = Not at all Trouble relaxin = Not at all Being so restless that it is hard to sit still: 0 = Not at all Becoming easily annoyed or irritable: 0 = Not at all Feeling afraid as if something awful might happen: 0 = Not at all Total LOLA-7 score (0-4 normal; 5-9 mild; 10-14 moderate; 15-21 severe): 0 Source: Developed by Drs. Edwin Antonio, Armin Hurley and colleagues, with an educational francis from [employer]. LOLA-7 Assessment Billing LOLA-7 Assessment Tool: LOLA-7 Assessment 58398 Physical exam (Primary Care) Vital Signs: Last Vital Signs Temp 97.2 F 02/06/25 11:49 Pulse 72 02/06/25 11:49 Resp 12 02/06/25 11:49 BP 101/69 02/06/25 11:49 Pulse Ox 99 02/06/25 11:49 Oxygen Delivery Method Room Air 02/06/25 11:49 BMI result Body Mass Index 29.2 Tobacco/Smoking Status: Tobacco use Status Tobacco use date assessed 02/06/25 02/06/25 11:51 Patient Tobacco Use Status Former Tobacco user 02/06/25 11:51 e-Cigarette/Vaping Use Never Used 02/06/25 11:51 PHQ-9: PHQ-9 Score PHQ-9: Total score 0 02/06/25 12:45 Depression Screening Interpretation: Negative Thrive Assessment: Date of Thrive Assessment Date Thrive assessed 02/06/25 02/06/25 11:51 Currently or been in a relationship where the following occur: No concerns reported Immunizations Boostrix Tdap 2.5 Lf unit-8 mcg-5 Lf/0.5 mL intramuscular syringe Performing Provider: KATELYNN Yates [place] [facility] [place] [facility] Administered by: Monica Quan MA on 02/06/25 12:45 Dose Route Admin Location Dispensed Lot Number Expiration Date [facility] Solar Installer 0.5 mL IM Right Deltoid 0.5 mL [id number] 06/02/27 [id number] [employer] Total Dispensed Waste 0.5 mL 0 % VIS Given Date VIS Provided VIS Publication Date 02/06/25 Single Vaccine 21 Eligibility Eligibility Date Funding Source Not [facility] Eligible 02/06/25 Private Coding Level of Care Code Est Pt Prev Care 40-64y(85369) Diagnoses Encounter for general adult medical examination without abnormal findings Z00.00 Tinnitus of both ears H93.13 Laterality: bilateral CURYUNG (hard of hearing) H91.90 LOLA (generalized anxiety disorder) F41.1 Moderate mixed hyperlipidemia not requiring statin therapy E78.2 Hyperlipidemia type: moderate mixed hyperlipidemia not requiring statin therapy Perimenopausal N95.1 History of Papanicolaou smear of cervix Z92.89 Additional Codes LOLA-7 Assessment Billing - LOLA-7 Assessment Tool: LOLA-7 Assessment 23531 ([id number]) PHQ-9 - 59663 - PHQ-9 Billing: Yes ([id number]) Assessment & Plan Assessment & Plan (1) Encounter for general adult medical examination without abnormal findings: Onset Date: ~02/06/25 Code(s): Z00.00 - Encounter for general adult medical examination without abnormal findings Category: Medical (2) Tinnitus: Code(s): H93.19 - Tinnitus, unspecified ear Category: Medical Qualifiers: Laterality: bilateral Qualified Code(s): H93.13 - Tinnitus, bilateral (3) CURYUNG (hard of hearing): Code(s): H91.90 - Unspecified hearing loss, unspecified ear Category: Medical (4) LOLA (generalized anxiety disorder): Code(s): F41.1 - Generalized anxiety disorder Category: Medical (5) Hyperlipidemia: Code(s): E78.5 - Hyperlipidemia, unspecified Category: Medical Qualifiers: Hyperlipidemia type: moderate mixed hyperlipidemia not requiring statin therapy Qualified Code(s): E78.2 - Mixed hyperlipidemia (6) Perimenopausal: Code(s): N95.1 - Menopausal and female climacteric states Category: Medical (7) History of Papanicolaou smear of cervix: Onset Date: ~2022 Code(s): Z92.89 - Personal history of other medical treatment Category: Medical Plan . Orders: Orders TDaP Immunization Today Z23 - Encounter for immunization Patient Instructions: Health screenings for women You should visit your health care provider from time to time, even if you are healthy. The purpose of these visits is to: Screen for medical issues Assess your risk for future medical problems Encourage a healthy lifestyle Update vaccinations and other preventive care services Help you get to know your provider in case of an illness Information Even if you feel fine, you should still see your provider for regular checkups. These visits can help you avoid problems in the future. For example, the only way to find out if you have high blood pressure is to have it checked regularly. High blood sugar and high cholesterol levels also may not have any symptoms in the early stages. A simple blood test can check for these conditions. There are specific times when you should see your provider or receive specific health screenings. The [place] Preventive Services Task Force publishes a list of recommended screenings. Below are screening guidelines for women ages 18 to 39. BLOOD PRESSURE SCREENING Your blood pressure should be checked at least once every 3 to 5 years if: Your blood pressure is in the normal range (top number less than 120 mm Hg and bottom number less than 80 mm Hg) You don't have risk factors for high blood pressure Ask your provider if you need your blood pressure checked more often if: The top number is 120 to 129 mm Hg or the bottom number is 70 to 79 mm Hg You have diabetes, heart disease, kidney problems, are overweight, or have certain other health conditions You have a first-degree relative with high blood pressure You are Black You had high blood pressure during a If the top number is 130 mm Hg or greater or the bottom number is 80 mm Hg or greater, this is considered stage 1 hypertension. Schedule an appointment with your provider to learn how you can reduce your blood pressure. Watch for blood pressure screenings in your area. Ask your provider if you can stop in to have your blood pressure checked. BREAST CANCER SCREENING Experts do not agree about the benefits of breast self-exams in finding breast cancer or saving lives. Talk to your provider about what is best for you. A screening mammogram is not recommended for most women under age 40. Your provider may discuss and recommend mammograms, MRI scans, or ultrasounds if you have an increased risk for breast cancer, such as: A mother or sister who had breast cancer at a young age (most often starting screening earlier than the age the close relative was diagnosed) You carry a high-risk genetic marker CERVICAL CANCER SCREENING Cervical cancer screening should start at age 21 years unless your provider advises otherwise. After the first test: Women ages 21 through 29 should have a Pap test every 3 years. Exoprts do not agree on whether HPV testing is recommended for this age group. Women ages 30 through 65 should be screened with either a Pap test every 3 years or the HPV test every 5 years or both tests every 5 years (called cotesting ). Women who have been treated for precancer (cervical dysplasia) should continue to have Pap tests for 20 years after treatment or until age 65, whichever is longer. If you have had your uterus and cervix removed (total hysterectomy), and you have not been diagnosed with cervical cancer or precancer (high grade cervical neoplasia), you do not need cervical cancer screening. CHOLESTEROL SCREENING Cholesterol screening should begin at: Age 45 for women with no known risk factors for coronary heart disease Age 20 for women with known risk factors for coronary heart disease Repeat cholesterol screening should take place: Every 5 years for women with normal cholesterol levels More often if changes occur in lifestyle (including weight gain and diet) More often if you have diabetes, heart disease, kidney problems, or certain other conditions DIABETES SCREENING You should be screened for diabetes starting at age 35 and then repeated every 3 years if you have no risk factors for diabetes. Screening may need to start earlier and be repeated more often if you have other risk factors for diabetes, such as: You have a first degree relative with diabetes. You are overweight or have obesity. You have high blood pressure, prediabetes, or a history of heart disease. Screening for diabetes should be done if you are planning to become and you are overweight and have other risk factors such as high blood pressure. DENTAL EXAM Go to the dentist once or twice every year for an exam and cleaning. Your dentist will evaluate if you need more frequent visits. EYE EXAM Have an eye exam every 5 to 10 years before age 40. If you have vision problems, have an eye exam every 2 years or more often if recommended by your provider. You should have an eye exam that includes an examination of your retina (back of your eye) at least every year if you have diabetes. IMMUNIZATIONS Commonly needed vaccines include: Flu shot: get one every year. COVID-19 vaccine: ask your provider what is best for you. Tetanus-diphtheria and acellular pertussis (Tdap) vaccine: have one at or after age 19 as one of your tetanus-diphtheria vaccines if you did not receive it as an adolescent. Tetanus-diphtheria: have a booster (or Tdap) every 10 years. Varicella vaccine: receive 2 doses if you never had chickenpox or the varicella vaccine. Hepatitis B vaccine: receive 2, 3, or 4 doses, depending on your exact circumstances. Measles, mumps, and rubella (MMR) vaccine: receive 1 to 2 doses if you are not already immune to MMR. Your provider can tell you if you are immune. Ask your provider about the human papillomavirus (HPV) vaccine if: You have not received the HPV vaccine in the past You have not completed the full vaccine series (you should catch up on this shot) Ask your provider if you should receive other immunizations if you have certain health problems that increase your risk for some diseases such as pneumonia. INFECTIOUS DISEASE SCREENING Women who are sexually active should be screened for chlamydia and gonorrhea up until age 25. Women 25 years and older should be screened for chlamydia and gonorrhea if at high risk. Screening for hepatitis C: All adults ages 18 to 79 should get a one-time test for hepatitis C. people should be screened at every . Screening for human immunodeficiency virus (HIV): All people ages 15 to 65 should get a one-time test for HIV. Depending on your lifestyle and medical history, you may also need to be screened for infections such as syphilis and HIV, as well as other infections. PHYSICAL EXAM All adults should visit their provider from time to time, even if they are healthy. The purpose of these visits is to: Screen for disease Assess your risk of future medical problems Encourage a healthy lifestyle Update your vaccinations and other preventive care services Maintain a relationship with a provider in case of an illness Your height, weight, and BMI should be checked at every exam. During your exam, your provider may ask you about: Depression and anxiety Diet and exercise Alcohol and tobacco use Safety issues, such as using seat belts, smoke detectors, and intimate partner violence Your medicines and risk for interactions SKIN SELF-EXAM Your provider may check your skin for signs of skin cancer, especially if you're at high risk, such as if you: Have had skin cancer before Have close relatives with skin cancer Have a weakened immune system OTHER SCREENING Talk with your provider about colon cancer screening if you have a strong family history of colon cancer or polyps, or if you have had inflammatory bowel disease or polyps yourself. Routine bone density screening of women under 40 is not recommended.
[2025-02-06 11:49] VITALS: BP 101/69; PULSE 72; RESP 12; TEMP 36.2; O2SAT 99; BMI 29.2
== END 2025-02-06 16:50 | disposition home or self-care (01) ==
LOC: HO.HMCFM 11:42
PROVIDERS: PCP Nurse Practitioner Family; Visit Provider Nurse Practitioner Family
DX: Z00.00 Encounter for general adult medical examination without abnormal findings (principal); H93.13 Tinnitus, bilateral; H91.90 Unspecified hearing loss, unspecified ear; F41.1 Generalized anxiety disorder; E78.2 Mixed hyperlipidemia; N95.1 Menopausal and female climacteric states; Z92.89 Personal history of other medical treatment; Z23 Encounter for immunization

== ENCOUNTER → 2025-02-06 11:41 | Outpatient (BNVA) | payer BC, SELFPAY | PROVIDERS: PCP Nurse Practitioner Family; Visit Provider Nurse Practitioner Family | DX: Z00.00 Encounter for general adult medical examination without abnormal findings (principal); F41.1 Generalized anxiety disorder; M19.011 Primary osteoarthritis, right shoulder; H93.19 Tinnitus, unspecified ear; E78.5 Hyperlipidemia, unspecified; M54.50 Low back pain, unspecified; G89.29 Other chronic pain; L65.9 Nonscarring hair loss, unspecified; H93.13 Tinnitus, bilateral; E78.2 Mixed hyperlipidemia; N95.1 Menopausal and female climacteric states; Z92.89 Personal history of other medical treatment; Z23 Encounter for immunization | CPT/HCPCS: 90471; 90715; 96127 ==